=== PATIENT | male | born 1955 | race Two or more races ===

== ENCOUNTER 2020-12-23 00:54 | Emergency (ER) | payer OTHER ==
[~2020-12-23] VITALS: Ht 167.6 cm; Wt 88.5 kg
[2020-12-23] MEDS ORDERED: CRESTOR10 MG (01:03)
[2020-12-23] MEDS ORDERED: COZAAR100 MG (01:03)
[2020-12-23] MEDS ORDERED: ALBUTEROL2.5 MG/3 M IH (04:58)
[2020-12-23] MEDS ORDERED: ZYNCOF 20-400120 ML PO (04:58)
[2020-12-23] MEDS ORDERED: ZITHROMAX500 MG PO (04:58)
== END 2020-12-23 05:07 | disposition home or self-care (01) ==
LOC: ER 00:54
DX: J40 Bronchitis, not specified as acute or chronic (principal); R05 Cough; R06.02 Shortness of breath

== ENCOUNTER 2021-11-22 08:58 | Outpatient (CLI) | payer OTHER ==
[~2021-11-22 08:58] MED LIST: ALBUTEROL2.5 MG/3 M IH; COZAAR100 MG; CRESTOR10 MG; ZITHROMAX500 MG PO; ZYNCOF 20-400120 ML PO
== END 2021-11-22 08:59 | disposition home or self-care (01) ==
LOC: SONOGRAMA 08:58
PROVIDERS: ATTEND Specialist
DX: R97.20 Elevated prostate specific antigen [PSA] (principal); N40.3 Nodular prostate with lower urinary tract symptoms

== ENCOUNTER 2022-01-31 08:34 | Outpatient (CLI) | payer OTHER | END 2022-01-31 08:37 | disposition home or self-care (01) | LOC: MRI 08:34 | PROVIDERS: ATTEND Otolaryngology | DX: R22.1 Localized swelling, mass and lump, neck (principal) | CPT/HCPCS: 70543; Q9965; 70542 ==